=== PATIENT | male | born 1945 | race Caucasian/White ===

== ENCOUNTER 2025-09-11 14:00 | Outpatient (RCR) | payer OTHER, SELFPAY ==
--- NOTE | 2025-08-25 09:47 | PT.OIERPT ---
PT OP Initial Eval Patient Information Outpatient Physical Therapy Treatment Date: 08/25/25 Visit Reasons: LEFT SHOULDER PAIN Medical Diagnosis: M19.012 Treatment Dx #1: Left Shoulder Pain Treatment Dx #2: Left Shoulder Mobility Deficits Start of Care: 08/25/25 Date of Onset: 1 year ago Smoking Status Smoking Status: Never smoker Initial Assessment Subjective: Pt is a 79 y/o male reports of chronic left shoulder pain (05/01) ~ 1 year ago. Pt mentioned his shoulder is bone on bone and needs a replacement but insurance declined the surgery. Pt has limitation with overhead motions, lifting, self care, cooking, cleaning, yardwork, and recreational activities. Objective: Left Shoulder PROM Flexion: 90 def Abduction: 70 deg External Rotation: 20 deg Internal Rotation: 45 deg Left Shoulder AROM Flexion: 90 deg Abduction: 45 deg ER and IR: unable Left Shoulder MMTs: grossly 3-/5 Left Scapula MMTs: grossly 3-/5 Assessment: Pt demonstrate left shoulder mobility and strength deficits consistent with shoulder OA and rotator cuff involvement leading to difficulty with ADLs. Pt will attempt physical therapy if pain persist Pt will be refer back to provider for further consultation. 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 Goals 1) Increase left shoulder PROM WFL in 6 wks to prevent frozen shoulder 2) Increase left shoulder AROM WFL in 6 wks to be able to perform overhead motions 3) Decrease shoulder pain to 3/10 in 6 wks to be able to sleep on the shoulder 4) Increase left shoulder MMTs grossly to 3+/5 in 6 wks to be able to perform lifting activities 5) Indep with HEP Treatment Plan 1) Manual Therapy 2) Therapeutic Activities 3) Therapeutic Exercises 4) Modalities (ice, heat) Frequency and Duration: 2 x wk for 6 wks Certification Dates: 08/25/25 to 11/25/25 Procedure Charges OP PT Eval Mod Complex 30 minutes: Yes
--- NOTE | 2025-08-28 11:01 | PT.ODAYNRPT ---
PT Outpatient Daily Note OP Daily Note Outpatient Physical Therapy Treatment Date: 08/28/25 Visit Reasons: LEFT SHOULDER PAIN Subjective: Pt's shoulder feels the same and continues to hurt. Objective: Please see flow chart for list of ther ex performed Assessment: no change in overall pain and continues to have pain up to 90 deg of flexion and abduction with exercises Plan: Continue with PT Length of Time (minutes) of Treatment: 30 Minutes Procedure Charges Therapeutic Exercise 30 minutes: Yes
--- NOTE | 2025-09-11 14:38 | PT.ODAYNRPT ---
PT Outpatient Daily Note OP Daily Note Outpatient Physical Therapy Treatment Date: 09/11/25 Visit Reasons: LEFT SHOULDER PAIN Subjective: Pt c/o high shoulder pain and stiffness. Objective: Please see flow sheet for ther ex list. Assessment: Pt demonstrates poor activity tolerance due to high shoulder pain with small movement. Plan: Continue with pOC. Length of Time (minutes) of Treatment: 30 Minutes FRAME TABLE OPERATOR Service Modifier Method I: Divide the number of min of care provided by the FRAME TABLE OPERATOR/SECURE SOFTWARE ASSESSOR by the total min of care provided then multiply by 100. If greater than 11 percent modifier is required. Method II: Divide the total time of care provided to patient by 10 (round to the nearest whole number) and add 1 min. to set the minimum time requirement. If treatment total was 60 min., then 10% of 6 min PT CQ modifier applied: CQ Modifier applied Procedure Charges Therapeutic Exercise 30 minutes: Yes
== END 2025-09-21 23:59 | disposition home or self-care (01) ==
LOC: CPTX 14:00
PROVIDERS: PCP Orthopaedic Surgery; Referring Provider Orthopaedic Surgery; Visit Provider Orthopaedic Surgery
DX: M25.512 Pain in left shoulder (principal); G89.29 Other chronic pain
CPT/HCPCS: 97110; 97162

== ENCOUNTER 2025-09-29 09:00 | Outpatient (RCR) | payer OTHER, SELFPAY ==
--- NOTE | 2025-09-22 12:56 | PTNOTE_ITS ---
PT Outpatient Daily Note OP Daily Note Outpatient Physical Therapy Treatment Date: 09/22/25 Visit Reasons: LEFT SHOULDER PAIN Subjective: Pt's shoulder feels about the same. No change in pain or improved movement. Objective: Please see flow chart for list of ther ex perfomed Assessment: minimal progress noted with shoulder AROM and continues to have pain in all pl ane Plan: Continue with PT Length of Time (minutes) of Treatment: 30 Minutes Procedure Charges Therapeutic Exercise 30 minutes: Yes
--- NOTE | 2025-09-24 08:57 | PT.ODAYNRPT ---
PT Outpatient Daily Note OP Daily Note Outpatient Physical Therapy Treatment Date: 09/24/25 Visit Reasons: LEFT SHOULDER PAIN Subjective: Pt's shoulder continues to hurt and feels about the same. Pt has difficulty lifting the arm with self care and dressing. Pt slept on the left shoulder last night and is hurting more this morning Objective: Please see flow chart for list of ther ex performed Assessment: minimal changes with pain post PT session. Pt continues to demonstrate limitation with shoulder exercises due to pain and weakness Plan: Continue with PT Length of Time (minutes) of Treatment: 30 Minutes Procedure Charges Therapeutic Exercise 30 minutes: Yes
--- NOTE | 2025-09-29 12:54 | PT.ODS1RPT ---
PT OP Progress/Discharge Note Date of Service: 09/29/25 Progress Note/DC Note Progress Note/Discharge Note: DC Note Patient Information Visit Reasons: LEFT SHOULDER PAIN Medical Diagnosis: M19.012 Treatment Dx #1: Left Shoulder Pain Service Continue Service or Discharge: Discharge Discharge Date: 09/29/25 Status Subjective: Pt's left shoulder continues to hurt and is painful. PT has not helped much. Pt still has limitation with overhead motions, lifting, chores, self care, and performing recreational activities. Objective: Left Shoulder Flexion AROM Flexion: 90 deg Abduction: 45 deg ER and IR: unable Left Shoulder PROM Flexion: 90 deg Abduction: 70 deg ER and IR: NT due to pain Left Shoulder MMTs: grossly 3-/5 Left Scapula MMTs: grossly 3-/5 Assessment: Pt demonstrate left shoulder mobility deficits with continued pain leading to difficulty with ADLs. Pt will no longer benefit from physical therapy due to minimal progress towards PT goals. Pt was instructed on HEP last session and educated to continue exercises to maintain overall mobility. Pt performed all exercises safely, thank you for your referral. Plan: D/C home with HEP and follow up with MD HUITRON Procedure Charges Therapeutic Exercise 15 minutes: Yes Self Care/Home Mgmt 15 minutes: Yes
== END 2025-10-22 23:59 | disposition home or self-care (01) ==
LOC: CPTX 09:00
PROVIDERS: PCP Orthopaedic Surgery; Referring Provider Orthopaedic Surgery; Visit Provider Orthopaedic Surgery
DX: M25.512 Pain in left shoulder (principal); M19.012 Primary osteoarthritis, left shoulder
CPT/HCPCS: 97110; 97535